=== PATIENT | female | born 1975 | race Caucasian/White ===

== ENCOUNTER 2018-01-14 08:50 | Outpatient (CLI) | payer BC | END 2018-01-14 08:51 | disposition home or self-care (01) | LOC: BICMAMMO 08:50 | PROVIDERS: ATTEND Obstetrics & Gynecology | DX: N63.0 Unspecified lump in unspecified breast (principal) | CPT/HCPCS: 77066; G0279 ==

== ENCOUNTER 2019-12-06 17:30 | Outpatient (CLI) | payer BC | END 2019-12-06 17:31 | disposition home or self-care (01) | LOC: SLEEPLAB 17:30 | PROVIDERS: ATTEND Family Medicine | DX: G47.33 Obstructive sleep apnea (adult) (pediatric) (principal); E84.9 Cystic fibrosis, unspecified; R53.83 Other fatigue; R06.83 Snoring; R51 Headache; R40.0 Somnolence; F41.9 Anxiety disorder, unspecified; G31.84 Mild cognitive impairment of uncertain or unknown etiology; R09.89 Other specified symptoms and signs involving the circulatory and respiratory systems | CPT/HCPCS: 95806 ==